=== PATIENT | female | born 2005 | race Hispanic/Latino ===

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

== ENCOUNTER 2024-08-10 20:05 | Emergency (ER) | payer BC, MEDICAID ==
[~2024-08-10] VITALS: Ht 160 cm; Wt 121.6 kg
[2024-08-10 20:37] LABS: BASOPHILS # (AUTO) 0.02 K/uL (0.00-0.20); BASOPHILS % (AUTO) 0.2 % (0.0-5.0); EOSINOPHILS # (AUTO) 0.14 K/uL (0.00-0.70); EOSINOPHILS % (AUTO) 1.6 % (0.0-8.0); HEMATOCRIT 42.5 % (36-48); IMMATURE GRANULOCYTE ABSOLUTE 0.03 K/uL (0-1); LYMPHOCYTES # (AUTO) 3.3 K/uL (1.0-4.8); LYMPHOCYTES % (AUTO) 37.5 % (21.0-51.0); MEAN CORPUSCULAR HEMOGLOBIN 27.4 pg (27.0-33.0); MEAN CORPUSCULAR HGB CONC 31.3 g/dL (32.0-36.0); MEAN CORPUSCULAR VOLUME 87.6 fL (80-100); MONOCYTES # (AUTO) 0.5 K/uL (0.1-1.0); MONOCYTES % (AUTO) 5.4 % (3.0-13.0); NEUTROPHILS # (AUTO) 4.8 K/uL (1.8-7.7); PLATELET COUNT (AUTO) 319 K/uL (130-400); RED BLOOD CELL COUNT(AUTO) 4.85 MIL/uL (4.00-5.50); RED CELL DISTRIBUTION WIDTH 12.9 % (11.0-15.5); WHITE BLOOD COUNT (AUTO) 8.8 K/uL (4.8-10.8)
[2024-08-10 20:40] LABS: APPEARANCE,URINE TURBID (CLEAR); BILIRUBIN,URINE NEGATIVE (NEGATIVE); COLOR,URINE YELLOW (YELLOW); GLUCOSE, URINE (UA) NEGATIVE (NEGATIVE); KETONES,URINE 5 mg/dL (NEGATIVE); LEUKOCYTE ESTERASE ,URINE 500 Leu/uL (NEGATIVE); NITRATE,URINE NEGATIVE (NEGATIVE); OCCULT BLOOD,URINE LARGE (NEGATIVE); PH,URINE 6.5 (5.0-8.0); PROTEIN,URINE 50 mg/dL (NEGATIVE); UROBILINOGEN,URINE 0.2 mg/dL (0.2-1.0)
[2024-08-10 20:42] LABS: HCG,QUALITATIVE URINE NEGATIVE (NEGATIVE)
[2024-08-10 20:43] LABS: POTASSIUM 3.6 mmol/L (3.5-5.1)
[2024-08-10 20:44] LABS: BACTERIA,URINE FEW /HPF (None Seen); MUCUS,URINE RARE LPF (None Seen); RBC,URINE 26-50 /HPF (0-1); SQUAMOUS EPITHELIAL CELL,UR MOD /HPF (0-2); UNCLASSIFIED CRYSTAL 5 /HPF (None Seen); WBC CLUMP FEW /HPF (0-1); YEAST,URINE BUDDING RARE /HPF (None Seen)
[2024-08-10] MEDS ORDERED: DOXY100T2 PO (21:36)
[2024-08-10] MEDS ORDERED: ACYC400T20 PO (21:36)
[2024-08-10] MEDS: cefTRIAXone 1G VIAL IM ONE (21:37)
--- NOTE | 2024-08-10 21:37 | ERN ---
General Chief Complaint: Multiple Complaints Stated Complaint: C/O ABD PAIN, LESION,VAGINAL AREA,MOUTH Time Seen by MD: 20:08 Time Seen by Midlevel: 20:08 Source: patient History of Present Illness Initial Comments 19-year-old female presents to the emergency department for medical examination. Patient reports lower abdominal pain/cramping, vaginal lesions, oral lesions, vaginal bleeding, painful urination. Denies any fever, vomiting, diarrhea or further associated symptoms. Patient reports the abdominal pain and lesions initiated three days ago. Has been having vaginal bleeding x1 month, states she has an OBGYN appointment at the end of the month. A1. Denies significant past medical history. Allergies: Coded Allergies: No Known Allergies (Unverified Allergy, Unknown, 08/10/24) Home Meds Active Scripts Doxycycline Hyclate (Doxycycline Hyclate) 100 Mg Tablet, 1 TAB PO BID for 7 Days, #14 TAB 0 Refills Prov:ARIANNA VU 08/10/24 Acyclovir (Acyclovir) 400 Mg Tablet, 1 TAB PO TID for 7 Days, #21 TAB 0 Refills Prov:ARIANNA VU 08/10/24 Past Medical History Past Medical History: No Pertinent History Past Surgical History: None Female( History) LMP: August 10, 2024 ROS Dictation Constitutional: Negative for fever,chills, and weight loss Eyes: Negative for injury, pain,redness, and discharge ENT: Positive for oral lesions Negative for injury,pain or swelling Cardiovascular: Negative for chest pain, palpitations, and edema Respiratory: Negative for shortness of breath, cough, and wheezing, Abdomen/GI: Positive for lower abdominal pain Negative for nausea, vomiting, diarrhea, and constipation Back: Negative for injury and pain : Positive for vaginal lesions, vaginal bleeding, dysuria MS/Extremity: Negative for injury and deformity Skin: Negative for rash, and discoloration Neuro: Negative for headache, weakness, numbness, tingling, and seizure Psych: Negative for suicide ideation, homicidal ideation, and hallucinations Physical Exam Physical Exam Dictation General: awake, alert, no acute distress Head/Face: Normocephalic, atraumatic Eyes: PERRL, EOMI, normal conjunctiva ENT: ulcerative lesions noted to the oral mucosa oral mucosa moist Neck: Supple, normal range of motion Cardiovascular: RRR, normal S1/S2 Respiratory: CTAB, no respiratory distress Abdomen: Soft, non-tender, non-distended, no guarding or rebound. : Ulcerative painful lesions noted to the labia majora and minora Skin: Warm, dry, normal turgor, no rash MS/Extremity: Pulses equal, no cyanosis, neurovascular intact, FROM Neuro: COAx4, GCS 15, strength 5/5, CN 2-12 intact, normal cerebellar exam, normal gait Psych: Normal behavior, mood, and affect normal Results Laboratory and Microbiology Lab and Micro Result Laboratory Tests Test 08/10/24 20:10 08/10/24 20:25 Urine Color YELLOW (YELLOW) Urine Appearance TURBID (CLEAR) Urine pH 6.5 (5.0-8.0) Urine Specific [place] 1.025 (1.001-1.031) Urine Protein 50 mg/dL (NEGATIVE) H Urine Glucose (UA) NEGATIVE mg/dL (NEGATIVE) Urine Ketones 5 mg/dL (NEGATIVE) H Urine Occult Blood LARGE (NEGATIVE) H Urine Nitrate NEGATIVE (NEGATIVE) Urine Bilirubin NEGATIVE mg/dL (NEGATIVE) Urine Urobilinogen 0.2 mg/dL (0.2-1.0) Urine Leukocyte Esterase 500 [place]/uL (NEGATIVE) H Urine RBC 26-50 /HPF (0-1) H Urine WBC 11-25 /HPF (0-1) H Urine WBC Clumps (Auto) FEW /HPF (0-1) Urine Squamous Epithelial Cells MOD /HPF (0-2) Urine Other Crystals (Auto) 5 /HPF (None Seen) Urine Bacteria FEW /HPF (None Seen) Urine Yeast RARE /HPF (None Seen) Urine HCG, Qualitative NEGATIVE (NEGATIVE) White Blood Count 8.8 K/uL (4.8-10.8) Red Blood Count 4.85 MIL/uL (4.00-5.50) Hemoglobin 13.3 g/dL (12.0-16.0) Hematocrit 42.5 % (36-48) Mean Corpuscular Volume 87.6 fL (80-100) Mean Corpuscular Hemoglobin 27.4 pg (27.0-33.0) Mean Corpuscular Hemoglobin Concent 31.3 g/dL (32.0-36.0) L Red Cell Distribution Width 12.9 % (11.0-15.5) Platelet Count 319 K/uL (130-400) Mean Platelet Volume 10.1 fL (7.5-10.5) Immature Granulocyte % (Auto) 0.3 % (0-1) Neutrophils (%) (Auto) 55.0 % (40.0-77.0) Lymphocytes (%) (Auto) 37.5 % (21.0-51.0) Monocytes (%) (Auto) 5.4 % (3.0-13.0) Eosinophils (%) (Auto) 1.6 % (0.0-8.0) Basophils (%) (Auto) 0.2 % (0.0-5.0) Neutrophils # (Auto) 4.8 K/uL (1.8-7.7) Lymphocytes # (Auto) 3.3 K/uL (1.0-4.8) Monocytes # (Auto) 0.5 K/uL (0.1-1.0) Eosinophils # (Auto) 0.14 K/uL (0.00-0.70) Basophils # (Auto) 0.02 K/uL (0.00-0.20) Absolute Immature Granulocyte (auto 0.03 K/uL (0-1) Nucleated Red Blood Cells 0.0 % (0.0-0.19) Sodium Level 139 mmol/L (136-145) Potassium Level 3.6 mmol/L (3.5-5.1) Chloride Level 102 mmol/L (101-111) Carbon Dioxide Level 29 mmol/L (21-32) Blood Urea Nitrogen 15 mg/dL (7-18) Creatinine 1.0 mg/dL (0.5-1.0) Glomerular Filtration Rate Calc 82 mL/min (>90) Random Glucose 96 mg/dL (70-105) Total Calcium 9.1 mg/dL (8.5-10.1) Labs Reviewed?: Yes MDM MDM: Differential diagnosis: UTI, STI, Rationale: 19-year-old female presents to the emergency department for medical examination. Patient reports lower abdominal pain/cramping, vaginal lesions, oral lesions, vaginal bleeding, painful urination. Denies any fever, vomiting, diarrhea or further associated symptoms. Patient reports the abdominal pain and lesions initiated three days ago. Has been having vaginal bleeding x1 month, states she has an OBGYN appointment at the end of the month. A1. Denies significant past medical history. Per physical examination ulcerative lesions noted to the oral mucosa, ulcerative painful lesions noted to the labia minora and labia majora. Labs obtained CBC and BMP within normal limits. UA positive for urinary tract infection. Patient was administered Rocephin in the ED. Pending chlamydia and gonorrhea testing. The patient was educated on findings, diagnosis, treatment. Antibiotics prescribed for outpatient treatment. Advised to follow up with PCP. Return to the emergency department if any worsening symptoms. Patient verbalized understanding. Patient stable for discharge. There are no social concerns with this patient. I independently interpreted the test that were performed, results were reviewed by me and considered findings on radiology if ordered. Medical management and examination interpretation discussions were had by me with other qualified healthcare professionals as indicated for the patient's care. ED Course Orders Procedure Category Date Status Time Cbc With Differential LAB 08/10/24 Complete 20:15 Basic Metabolic Panel LAB 08/10/24 Complete 20:15 Urinalysis LAB 08/10/24 Complete W/Microscopic 20:15 ,Urine Test LAB 08/10/24 Complete 20:15 Chlamydia & Gc Pcr EVELIA 08/10/24 In Process 20:15 Culture Urine EVELIA 08/10/24 In Process 20:40 Ceftriaxone 1g Vial PHA 08/10/24 Complete (Rocephine 1g Inj) 21:00 Current Medications Medications (Trade) Dose Ordered Sig/[place] Route PRN Reason Start Time Stop Time Status Last Admin Dose Admin Ceftriaxone Sodium (ROCEphine 1G INJ) 1 gm ONCE ONCE IM 08/10/24 21:00 08/10/24 21:01 DC 08/10/24 21:37 Vital Signs Date Time Temp Pulse Resp B/P (MAP) Pulse Ox O2 Delivery O2 Flow Rate FiO2 08/10/24 21:38 98.1 75 19 135/80 96 Room Air* 0 21 08/10/24 20:08 98.8 106 20 128/87 100 Room Air DX & DISP Disposition: Discharge Departure Impression: Primary Impression: UTI (urinary tract infection) Additional Impressions: Vaginal lesion, Herpes Condition: Stable Scripts Doxycycline Hyclate (Doxycycline Hyclate) 100 Mg Tablet 1 TAB PO BID for 7 Days, #14 TAB 0 Refills Prov: ARIANNA VU 08/10/24 Acyclovir (Acyclovir) 400 Mg Tablet 1 TAB PO TID for 7 Days, #21 TAB 0 Refills Prov: ARIANNA VU 08/10/24 Additional Instructions: Discharge home. Rest. Follow up with primary care DrOsvaldo in 24 hours. Return to the ER for any acute changes or worsening symptoms. If any medications were prescribed take as directed. Okay to continue home medications unless otherwise discussed during your visit in the emergency room today. Patient was also advised to follow-up with primary care physician in 1 to 2 days for continued monitoring. Referrals: SELF,REFERRAL (PCP) I performed the substantive portion of the visit. I have reviewed and personally made and approve the management plan that is documented in the notes by myself or the DIMA. I acknowledge full responsibility for the patient's management plan. ARIANNA VU August 10, 2024 21:37
[2024-08-10 21:38] VITALS: BP 135/80; PULSE 75; RESP 19; TEMP 98; O2SAT 96
[2024-08-10] MEDS ORDERED: ketOROlac 15MG/ML VIAL (15MG/ML) IM ONE (22:00)
== END 2024-08-10 21:51 | disposition home or self-care (01) ==
LOC: EDH 20:05
DX: N39.0 Urinary tract infection, site not specified (principal); N89.8 Other specified noninflammatory disorders of vagina; B00.9 Herpesviral infection, unspecified; Z79.624 Long term (current) use of inhibitors of nucleotide synthesis
CPT/HCPCS: 99284; 80048; 85025; 87086; 87491; 87591; 81001; 81025; 36415; 96372; J0696